=== PATIENT | male | born 1940 | race Asian ===

== ENCOUNTER 2023-09-24 19:46 | Inpatient (IN) | payer MEDICARE ==
[~2023-09-24] VITALS: Ht 157.5 cm; Wt 78.5 kg
[2023-09-24 21:10] LABS: BASOPHILS % 0.7 % (0.0-2.0); HEMATOCRIT. 26.4 % (42.0-52.0); HEMOGLOBIN. 8.5 g/dL (14.0-18.0); LYMPHOCYTES % 10.5 % (20.0-50.0); MEAN CORPUSCULAR HEMOGLOBIN 28.9 pg (28.0-32.0); MEAN CORPUSCULAR HGB CONC 32.3 g/dL (31.0-37.0); MEAN CORPUSCULAR VOLUME 89.5 fL (80.0-94.0); MEAN PLATELET VOLUME 9.5 fl (7.4-10.4); MONOCYTES % 5.5 % (2.0-8.0); NEUTROPHILS % 78.3 % (40.0-76.0); PLATELET 218 x1000/uL (130-400); RED BLOOD CELL COUNT 2.95 mill/uL (4.7-6.1); WHITE BLOOD COUNT 11.6 x1000/uL (4.5-11.0)
[2023-09-24 21:15] LABS: CHLORIDE 100 mEq/L (98-107); POTASSIUM 4.7 mEq/L (3.5-5.1); SODIUM 139 mEq/L (136-145)
[2023-09-24 21:16] LABS: CALCIUM 9.1 mg/dL (8.7-10.4); CARBON DIOXIDE 28 mEq/L (21-32)
[2023-09-24 21:21] LABS: CREATININE 4.2 mg/dL (0.6-1.3); GLUCOSE 213 mg/dL (70-105); UREA NITROGEN BLOOD 50 mg/dL (9-23)
[2023-09-24 21:23] LABS: ALANINE AMINOTRANSFERASE 26 IU/L (10-49); ALBUMIN 3.7 g/dL (3.2-4.8); ASPARTATE AMINOTRANSFERASE 33 IU/L (<34); BILIRUBIN TOTAL 0.4 mg/dL (0.1-1.0); PROTEIN TOTAL 6.8 g/dL (6.0-8.3)
[2023-09-24 21:37] LABS: TROPONIN I HIGH SENSITIVITY 616 ng/L (3.0-53)
[2023-09-24] MEDS: IPRATROPIUM BROMIDE (0.02%) 0.5MG/2.5ML NEB ONE (22:01)
[2023-09-24] MEDS: ALBUTEROL (0.083%) 2.5MG/3ML NEB ONE (22:02)
[2023-09-24] MEDS: ALBUTEROL (0.083%) 2.5MG/3ML NEB HHN STA (22:05)
[2023-09-24] MEDS: IPRATROPIUM BROMIDE (0.02%) 0.5MG/2.5ML NEB HHN STA (22:05)
[2023-09-24 22:06] VITALS: PULSE 91; RESP 12; O2SAT 96
[2023-09-24] MEDS ORDERED: DOCUSATE SODIUM 100MG CAPSULE PO PRN (22:30)
[2023-09-24] MEDS ORDERED: ACETAMINOPHEN 650MG/20.3ML UDC GT PRN (22:30)
[2023-09-24] MEDS ORDERED: ONDANSETRON HCL 4MG/2ML INJ IV PRN (22:30)
[2023-09-24] MEDS ORDERED: IPRATROPIUM/ALBUTEROL 0.5-3(2.5)MG/3ML NEB HHN PRN (22:30)
[2023-09-24] MEDS ORDERED: GUAIFENESIN 200MG/10ML SUGAR FREE UDC PO PRN (22:30)
[2023-09-24] MEDS: METHYLPREDNISOLONE SOD SUCC 40MG/ML (ACT-O-VIAL) IV SCH (22:30)
[2023-09-24] MEDS ORDERED: DEXTROSE 50% WATER 50ML SYRINGE IV PRN (22:30)
[2023-09-24] MEDS ORDERED: AZITHROMYCIN 500MG/250ML 250 ML IV STA (22:49)
[2023-09-24 23:26] LABS: PROTHROMBIN TIME 11.1 sec (9.6-11.0)
[2023-09-24 23:26] LABS: BG BASE EXCESS 2.7 mmol/L (-2.0-2.0); BG CARBOXYHEMOGLOBIN 0.4 % (0.5-1.5); BG DEOXYHEMOGLOBIN 6.8 % (0.0-5.0); BG HCO3 ACT 27.2 mmol/L (22.0-26.0); BG METHEMOGLOBIN 0.3 % (0.0-1.5); BG OXYGEN SATURATION 93.2 % (92.0-98.5); BG OXYHEMOGLOBIN 92.5 % (94.0-97.0); BG PCO2 41.3 mmHg (35.0-45.0); BG PH 7.436 (7.350-7.450); BG PO2 70.7 mmHg (75.0-100.0); BG SAMPLE SITE RIGHT RADIAL; BG TOTAL HEMOGLOBIN 8.8 g/dL (12.0-18.0); BG VENT MODE NASAL CANNULA
[2023-09-24] MEDS ORDERED: CEFTRIAXONE 1GM/50ML 50 ML IV NR (23:45)
[2023-09-24] MEDS ORDERED: DOXYCYCLINE 100MG/100ML 100 ML IV SCH (23:45)
[2023-09-24 23:51] LABS: TROPONIN I HIGH SENSITIVITY 620 ng/L (3.0-53)
[2023-09-25] VITALS (9 sets, daily range): BP systolic 104–172; BP diastolic 86–104; PULSE 87–92; RESP 17–23; TEMP 97.4–97.6; O2SAT 97–100
[2023-09-25] MEDS: ASPIRIN 325MG TABLET PO ONE (00:12)
[2023-09-25] MEDS: ACETAMINOPHEN 325MG TABLET PO PRN (00:13)
[2023-09-25 00:30] LABS: FERRITIN 391 ng/mL (22-322); FOLIC ACID (FOLATE) SERUM 10.88 ng/mL (>5.38)
[2023-09-25 00:31] LABS: VITAMIN B12 SERUM 328 pg/mL (211-911)
[2023-09-25 00:36] LABS: LACTIC ACID 2.1 mmol/L (0.4-2.0)
[2023-09-25] MEDS: ASPIRIN 325MG TABLET PO NR (01:02)
[2023-09-25] MEDS: FUROSEMIDE 40MG/4ML VIAL IVP NR (01:16)
[2023-09-25 01:18] LABS: IRON 23 ug/dL (65-175)
[2023-09-25 01:21] LABS: TOTAL IRON BINDING CAPACITY 160 ug/dl (250-425)
[2023-09-25] MEDS: CEFTRIAXONE 1GM/50ML 50 ML IV ONE (01:36)
[2023-09-25] MEDS: METHYLPREDNISOLONE SOD SUCC 125MG/2ML (ACT-O-VIAL) IV STA (01:47)
[2023-09-25] MEDS: METHYLPREDNISOLONE SOD SUCC 125MG/2ML (ACT-O-VIAL) IV NR (01:53)
[2023-09-25] MEDS: CEFTRIAXONE 1GM/50ML 50 ML IV NR (01:54)
[2023-09-25] MEDS: AZITHROMYCIN 500MG/250ML 250 ML IV NR (03:14)
[2023-09-25] MEDS: IPRATROPIUM/ALBUTEROL 0.5-3(2.5)MG/3ML NEB HHN SCH (04:46)
[2023-09-25 06:17] LABS: HEMATOCRIT 24.4 % (42.0-52.0); MEAN CORPUSCULAR HEMOGLOBIN 29.4 pg (28.0-32.0); MEAN CORPUSCULAR HGB CONC 32.8 g/dL (31.0-37.0); MEAN CORPUSCULAR VOLUME 89.6 fL (80.0-94.0); PLATELET 308 x1000/uL (130-400); RED BLOOD CELL COUNT 2.72 mill/uL (4.7-6.1); WHITE BLOOD COUNT 11.4 x1000/uL (4.5-11.0)
[2023-09-25 06:28] LABS: CHLORIDE 100 mEq/L (98-107); POTASSIUM 4.9 mEq/L (3.5-5.1); SODIUM 138 mEq/L (136-145)
[2023-09-25 06:29] LABS: CALCIUM 8.9 mg/dL (8.7-10.4); CARBON DIOXIDE 30 mEq/L (21-32)
[2023-09-25 06:34] LABS: CREATINE KINASE MB FRACTION 3.3 ng/mL (0.5-3.6); CREATININE 4.5 mg/dL (0.6-1.3); GLUCOSE 136 mg/dL (70-105); UREA NITROGEN BLOOD 53 mg/dL (9-23)
[2023-09-25 06:36] LABS: ALANINE AMINOTRANSFERASE 24 IU/L (10-49); ALBUMIN 3.7 g/dL (3.2-4.8); ASPARTATE AMINOTRANSFERASE 25 IU/L (<34); BILIRUBIN TOTAL 0.5 mg/dL (0.1-1.0); PHOSPHORUS 4.3 mg/dL (2.5-4.9); PROTEIN TOTAL 6.5 g/dL (6.0-8.3)
[2023-09-25] MEDS: INSULIN LISPRO 100 UNITS/ML SUBCUT SCH (08:20)
[2023-09-25] MEDS: PIPERACILLIN/TAZO 3.375G/50ML 50 ML IV SCH (09:06)
[2023-09-25] MEDS: ASPIRIN 81MG EC TABLET PO SCH (09:07)
[2023-09-25] MEDS: BLOOD SUGAR DIAGNOSTIC STRIP TEST SCH (09:11)
[2023-09-25 10:17] LABS: LACTIC ACID 2.8 mmol/L (0.4-2.0)
[2023-09-25 10:20] LABS: THYROID STIMULATING HORMONE 1.1 uIU/mL (0.55-4.78)
[2023-09-25 16:45] LABS: CREATINE KINASE MB FRACTION 6.4 ng/mL (0.5-3.6)
[2023-09-25] MEDS ORDERED: NIFE-32 PO (17:44)
[2023-09-25] MEDS ORDERED: CARV25TA47 PO (17:44)
[2023-09-25] MEDS: NIFEDIPINE XL 60MG TAB PO SCH (18:10)
[2023-09-25] MEDS ORDERED: CEFTRIAXONE 1GM/50ML 50 ML IV SCH (21:00)
[2023-09-25] MEDS: EPOETIN ALFA-EPBX 4,000 UNIT/ML VIAL SUBCUT SCH (21:53)
[2023-09-25 22:15] LABS: HEPATITIS B SURFACE ANTIGEN NEGATIVE (Negative)
[2023-09-25 22:36] LABS: HEPATITIS A AB IGM NEGATIVE (Negative); HEPATITIS B CORE AB IGM NEGATIVE (Negative)
[2023-09-25 22:37] LABS: HEPATITIS C AB NON REACTIVE (Neg) (Negative)
[2023-09-26] VITALS (22 sets, daily range): BP systolic 98–141; BP diastolic 50–110; PULSE 73–91; RESP 14–24; TEMP 97.2–98.1; O2SAT 96–98
[2023-09-26 02:22] LABS: TROPONIN I HIGH SENSITIVITY 1428 ng/L (3.0-53)
[2023-09-26 05:29] LABS: CARBON DIOXIDE 25 mEq/L (21-32); CHLORIDE 99 mEq/L (98-107); HEMATOCRIT. 25.5 % (42.0-52.0); HEMOGLOBIN. 8.4 g/dL (14.0-18.0); MEAN CORPUSCULAR HEMOGLOBIN 29.9 pg (28.0-32.0); MEAN CORPUSCULAR HGB CONC 33.1 g/dL (31.0-37.0); MEAN CORPUSCULAR VOLUME 90.6 fL (80.0-94.0); MEAN PLATELET VOLUME 9.3 fl (7.4-10.4); PLATELET 303 x1000/uL (130-400); POTASSIUM 4.9 mEq/L (3.5-5.1); RED BLOOD CELL COUNT 2.81 mill/uL (4.7-6.1); RED CELL DISTRIBUTION WIDTH 15.7 % (11.6-14.6); SODIUM 138 mEq/L (136-145); WHITE BLOOD COUNT 10.8 x1000/uL (4.5-11.0)
[2023-09-26 05:30] LABS: CALCIUM 8.9 mg/dL (8.7-10.4)
[2023-09-26 05:33] LABS: UREA NITROGEN BLOOD 74 mg/dL (9-23)
[2023-09-26 05:35] LABS: ALANINE AMINOTRANSFERASE 26 IU/L (10-49); GLUCOSE 186 mg/dL (70-105)
[2023-09-26 05:36] LABS: ALBUMIN 3.8 g/dL (3.2-4.8); ASPARTATE AMINOTRANSFERASE 40 IU/L (<34)
[2023-09-26 05:37] LABS: BILIRUBIN DIRECT 0.2 mg/dL (<=3.0); BILIRUBIN TOTAL 0.4 mg/dL (0.1-1.0); PHOSPHORUS 6.5 mg/dL (2.5-4.9); PROTEIN TOTAL 6.8 g/dL (6.0-8.3)
[2023-09-26 05:39] LABS: TROPONIN I HIGH SENSITIVITY 2269 ng/L (3.0-53)
[2023-09-26 05:40] LABS: CREATININE 5.3 mg/dL (0.6-1.3)
[2023-09-26 06:01] LABS: DIFFERENTIAL COMMENT 1
[2023-09-26 13:28] LABS: TROPONIN I HIGH SENSITIVITY 2420 ng/L (3.0-53)
[2023-09-26 16:32] LABS: LACTATE DEHYDROGENASE 419 IU/L (120-246); PLATELET ESTIMATE NORMAL
[2023-09-26 18:54] LABS: TROPONIN I HIGH SENSITIVITY 2457 ng/L (3.0-53)
[2023-09-26] MEDS: ATORVASTATIN CALCIUM 20MG TABLET PO SCH (22:01)
[2023-09-27] VITALS (20 sets, daily range): BP systolic 79–164; BP diastolic 60–125; PULSE 76–96; RESP 13–24; TEMP 97.1–98.2; O2SAT 96–97
[2023-09-27 05:56] LABS: CARBON DIOXIDE 25 mEq/L (21-32); CHLORIDE 102 mEq/L (98-107); SODIUM 138 mEq/L (136-145)
[2023-09-27 05:57] LABS: CALCIUM 8.2 mg/dL (8.7-10.4)
[2023-09-27 06:02] LABS: CREATININE 3.9 mg/dL (0.6-1.3); GLUCOSE 151 mg/dL (70-105); UREA NITROGEN BLOOD 48 mg/dL (9-23)
[2023-09-27 06:03] LABS: HEMATOCRIT 24.3 % (42.0-52.0); HEMOGLOBIN 8.1 g/dL (14.0-18.0); LACTATE DEHYDROGENASE 281 IU/L (120-246); MEAN CORPUSCULAR HEMOGLOBIN 29.5 pg (28.0-32.0); MEAN CORPUSCULAR HGB CONC 33.1 g/dL (31.0-37.0); MEAN CORPUSCULAR VOLUME 89.2 fL (80.0-94.0); PLATELET 286 x1000/uL (130-400); RED BLOOD CELL COUNT 2.73 mill/uL (4.7-6.1); RED CELL DISTRIBUTION WIDTH 15.7 % (11.6-14.6); WHITE BLOOD COUNT 10.8 x1000/uL (4.5-11.0)
[2023-09-27 06:04] LABS: PHOSPHORUS 5.6 mg/dL (2.5-4.9)
[2023-09-27] MEDS ORDERED: SODIUM BICARBONATE 4% 2.4MEQ/5ML VIAL IV ONE (09:30)
[2023-09-27] MEDS: SEVELAMER CARBONATE 800 MG TABLET PO SCH (13:51)
[2023-09-27 14:25] LABS: BODY FLUID MONOCYTES 8 %
[2023-09-27 14:26] LABS: BODY FLUID WBC 320 /cu mm (0-200)
[2023-09-27 14:27] LABS: BODY FLUID RBC 1780 /cu mm (0-2000)
[2023-09-27 15:19] LABS: TROPONIN I HIGH SENSITIVITY 1240 ng/L (3.0-53)
[2023-09-27 18:28] LABS: TROPONIN I HIGH SENSITIVITY 1236 ng/L (3.0-53)
[2023-09-27] MEDS: CARVEDILOL 3.125 MG TABLET PO SCH (21:45)
[2023-09-28] VITALS (22 sets, daily range): BP systolic 69–188; BP diastolic 49–134; PULSE 84–97; RESP 8–23; TEMP 96.9–98.4; O2SAT 96–98
[2023-09-28 04:56] LABS: HEMATOCRIT 24.8 % (42.0-52.0); HEMOGLOBIN 8.2 g/dL (14.0-18.0); MEAN CORPUSCULAR HEMOGLOBIN 30.6 pg (28.0-32.0); MEAN CORPUSCULAR HGB CONC 33.2 g/dL (31.0-37.0); PLATELET 298 x1000/uL (130-400); RED BLOOD CELL COUNT 2.69 mill/uL (4.7-6.1); RED CELL DISTRIBUTION WIDTH 15.8 % (11.6-14.6); WHITE BLOOD COUNT 9.5 x1000/uL (4.5-11.0)
[2023-09-28 05:07] LABS: TROPONIN I HIGH SENSITIVITY 1020 ng/L (3.0-53)
[2023-09-28] MEDS ORDERED: IODIXANOL 320MG/ML 100 ML BOTTLE IV ONE ×2 (07:48→10:50)
[2023-09-28] MEDS ORDERED: DIPHENHYDRAMINE 50MG/ML VIAL ONE (07:48)
[2023-09-28] MEDS ORDERED: VERAPAMIL HCL 2.5 MG/1 ML 2ML VIAL IV ONE (07:48)
[2023-09-28] MEDS ORDERED: HEPARIN 1000 UNITS/ML 10ML ONE (07:48)
[2023-09-28] MEDS ORDERED: LIDOCAINE HCL 1% 20ML VIAL ONE (07:48)
[2023-09-28 08:18] LABS: CALCIUM 7.6 mg/dL (8.7-10.4); POTASSIUM 4.4 mEq/L (3.5-5.1)
[2023-09-28] MEDS ORDERED: MIDAZOLAM HCL 2 MG/2 ML VIAL ONE (09:23)
[2023-09-28] MEDS ORDERED: FENTANYL CITRATE/PF 50MCG/ML 2ML VIAL ONE (09:23)
[2023-09-28 09:39] LABS: PROTEIN BODY FLUID < 2.0 gm/dL
[2023-09-28] MEDS ORDERED: HYDRALAZINE 20MG/ML VIAL ONE (11:00)
[2023-09-28] MEDS ORDERED: ATROPINE SULFATE 1MG/10ML SYR IV PRN (11:45)
[2023-09-28] MEDS ORDERED: ACETAMINOPHEN 325MG TABLET PO PRN (11:45)
[2023-09-28] MEDS: LORAZEPAM 2MG/ML INJ IV PRN (12:13)
[2023-09-28] MEDS: METHYLPREDNISOLONE SOD SUCC 40MG/ML (ACT-O-VIAL) IV SCH (12:13)
[2023-09-28] MEDS: MORPHINE SULFATE 2 MG/ML INJ (NOT FOR IM USE) IV PRN (13:14)
[2023-09-28] MEDS ORDERED: NALOXONE HCL 0.4MG/ML VIAL IV PRN (13:15)
[2023-09-28] MEDS: HYDRALAZINE 20MG/ML VIAL IV NR (18:38)
[2023-09-28] MEDS: CLONIDINE 0.1MG TABLET PO PRN (19:05)
[2023-09-29] VITALS (18 sets, daily range): BP systolic 116–141; BP diastolic 50–72; PULSE 73–103; RESP 14–23; TEMP 97–98.8; O2SAT 97–99
[2023-09-29 08:00] LABS: BASOPHILS % 0.1 % (0.0-2.0); HEMATOCRIT. 25.2 % (42.0-52.0); HEMOGLOBIN. 8.2 g/dL (14.0-18.0); LYMPHOCYTES % 5.8 % (20.0-50.0); MEAN CORPUSCULAR HEMOGLOBIN 28.6 pg (28.0-32.0); MEAN CORPUSCULAR HGB CONC 32.5 g/dL (31.0-37.0); MEAN PLATELET VOLUME 9.3 fl (7.4-10.4); MONOCYTES % 6.1 % (2.0-8.0); PLATELET 273 x1000/uL (130-400); RED BLOOD CELL COUNT 2.86 mill/uL (4.7-6.1); RED CELL DISTRIBUTION WIDTH 15.9 % (11.6-14.6); WHITE BLOOD COUNT 9.4 x1000/uL (4.5-11.0)
[2023-09-29 08:07] LABS: CARBON DIOXIDE 25 mEq/L (21-32); CHLORIDE 102 mEq/L (98-107); POTASSIUM 4.7 mEq/L (3.5-5.1); SODIUM 136 mEq/L (136-145)
[2023-09-29 08:08] LABS: CALCIUM 8.2 mg/dL (8.7-10.4)
[2023-09-29 08:13] LABS: CREATININE 4.2 mg/dL (0.6-1.3); GLUCOSE 241 mg/dL (70-105); UREA NITROGEN BLOOD 50 mg/dL (9-23)
[2023-09-29 08:15] LABS: PHOSPHORUS 5.9 mg/dL (2.5-4.9)
[2023-09-29 08:34] LABS: DIFFERENTIAL COMMENT 1
[2023-09-29 08:36] LABS: MEAN CORPUSCULAR VOLUME 87.9 fL (80.0-94.0)
[2023-09-30] VITALS (13 sets, daily range): BP systolic 110–153; BP diastolic 59–92; PULSE 84–101; RESP 12–20; TEMP 97–98.7; O2SAT 96
[2023-09-30] MEDS: PREDNISONE 20MG TABLET PO SCH (08:20)
[2023-09-30] MEDS: ENOXAPARIN 30MG/0.3ML SYR SUBCUT SCH (21:52)
[2023-09-30] MEDS: ZOLPIDEM TARTRATE 5MG TABLET PO NR (22:22)
[2023-10-01] VITALS (19 sets, daily range): BP systolic 139–165; BP diastolic 66–98; PULSE 77–93; RESP 12–26; TEMP 97–99
[2023-10-01 06:47] LABS: BASOPHILS % 0.1 % (0.0-2.0); EOSINOPHILS % 0.7 % (0.0-5.0); HEMATOCRIT 23.3 % (42.0-52.0); HEMATOCRIT. 23.3 % (42.0-52.0); HEMOGLOBIN 7.5 g/dL (14.0-18.0); HEMOGLOBIN. 7.5 g/dL (14.0-18.0); MEAN CORPUSCULAR HEMOGLOBIN 29.5 pg (28.0-32.0); MEAN CORPUSCULAR HGB CONC 32.3 g/dL (31.0-37.0); MEAN CORPUSCULAR VOLUME 91.4 fL (80.0-94.0); MEAN PLATELET VOLUME 9.3 fl (7.4-10.4); MONOCYTES % 7.7 % (2.0-8.0); NEUTROPHILS % 81.5 % (40.0-76.0); PLATELET 300 x1000/uL (130-400); RED BLOOD CELL COUNT 2.55 mill/uL (4.7-6.1); RED CELL DISTRIBUTION WIDTH 15.8 % (11.6-14.6); WHITE BLOOD COUNT 12.4 x1000/uL (4.5-11.0)
[2023-10-01 06:56] LABS: CARBON DIOXIDE 20 mEq/L (21-32); CHLORIDE 97 mEq/L (98-107); POTASSIUM 5.5 mEq/L (3.5-5.1); SODIUM 131 mEq/L (136-145)
[2023-10-01 06:57] LABS: CALCIUM 7.6 mg/dL (8.7-10.4)
[2023-10-01 07:01] LABS: GLUCOSE 136 mg/dL (70-105)
[2023-10-01 07:02] LABS: UREA NITROGEN BLOOD 60 mg/dL (9-23)
[2023-10-01 07:04] LABS: PHOSPHORUS 5.9 mg/dL (2.5-4.9)
[2023-10-01 07:05] LABS: CREATININE 5.9 mg/dL (0.6-1.3)
[2023-10-01 19:52] LABS: POTASSIUM 4.5 mEq/L (3.5-5.1)
[2023-10-01] MEDS: CARVEDILOL 6.25 MG TABLET PO SCH (20:26)
[2023-10-01] MEDS: MELATONIN 3MG TABLET PO SCH (20:27)
[2023-10-02] VITALS (9 sets, daily range): BP systolic 129–164; BP diastolic 61–78; PULSE 71–92; RESP 12–20; TEMP 97–98.7
[2023-10-03] VITALS (13 sets, daily range): BP systolic 92–179; BP diastolic 57–88; PULSE 73–95; RESP 18–23; TEMP 97.1–97.9
[2023-10-03 06:26] LABS: INR 1.1; PROTHROMBIN TIME 11.9 sec (9.6-11.0)
[2023-10-03 06:59] LABS: LACTATE DEHYDROGENASE 305 IU/L (120-246)
[2023-10-03 15:53] LABS: PROTEIN BODY FLUID < 2.0 gm/dL
[2023-10-03 19:59] LABS: BODY FLUID RBC 18 /cu mm (0-2000); BODY FLUID WBC 75 /cu mm (0-200)
[2023-10-03 20:00] LABS: BODY FLUID MONOCYTES 12 %
[2023-10-04] VITALS (8 sets, daily range): BP systolic 112–180; BP diastolic 34–86; PULSE 68–90; RESP 16–23; TEMP 97.1–98.4; O2SAT 99
[2023-10-04 17:08] LABS: PROTHROMBIN TIME 11.4 sec (9.6-11.0)
== END 2023-10-05 00:30 | DRG 280 ==
LOC: ER 19:46 → 5EST 21:56 → 7EST 10-02 12:39
PROVIDERS: ADMIT Preventive Medicine Clinical Informatics; ATTEND Preventive Medicine Clinical Informatics
PROC: 5A1D70Z Performance of Urinary Filtration, Intermittent, Less than 6 Hours Per Day (ICD-10-PCS; 2023-09-26)
PROC: 0W9B3ZZ Drainage of Left Pleural Cavity, Percutaneous Approach (ICD-10-PCS; 2023-09-27)
PROC: 4A023N7 Measurement of Cardiac Sampling and Pressure, Left Heart, Percutaneous Approach (ICD-10-PCS; principal; 2023-09-28)
PROC: B211YZZ Fluoroscopy of Multiple Coronary Arteries using Other Contrast (ICD-10-PCS; 2023-09-28)
PROC: B310YZZ Fluoroscopy of Thoracic Aorta using Other Contrast (ICD-10-PCS; 2023-09-28)
PROC: B41FYZZ Fluoroscopy of Right Lower Extremity Arteries using Other Contrast (ICD-10-PCS; 2023-09-28)
PROC: B410YZZ Fluoroscopy of Abdominal Aorta using Other Contrast (ICD-10-PCS; 2023-09-28)
PROC: 5A1D70Z Performance of Urinary Filtration, Intermittent, Less than 6 Hours Per Day (ICD-10-PCS; 2023-09-28)
PROC: 5A1D70Z Performance of Urinary Filtration, Intermittent, Less than 6 Hours Per Day (ICD-10-PCS; 2023-10-01)
PROC: 0W993ZZ Drainage of Right Pleural Cavity, Percutaneous Approach (ICD-10-PCS; 2023-10-03)
PROC: 5A1D70Z Performance of Urinary Filtration, Intermittent, Less than 6 Hours Per Day (ICD-10-PCS; 2023-10-03)
DX: I13.2 Hypertensive heart and chronic kidney disease with heart failure and with stage 5 chronic kidney disease, or end stage renal disease (principal); I50.23 Acute on chronic systolic (congestive) heart failure; I21.A1 Myocardial infarction type 2; J18.9 Pneumonia, unspecified organism; J96.01 Acute respiratory failure with hypoxia; N18.6 End stage renal disease; I25.810 Atherosclerosis of coronary artery bypass graft(s) without angina pectoris; J44.1 Chronic obstructive pulmonary disease with (acute) exacerbation; L03.115 Cellulitis of right lower limb; J44.0 Chronic obstructive pulmonary disease with (acute) lower respiratory infection; E87.1 Hypo-osmolality and hyponatremia; D50.8 Other iron deficiency anemias; E11.22 Type 2 diabetes mellitus with diabetic chronic kidney disease; D63.8 Anemia in other chronic diseases classified elsewhere; I25.10 Atherosclerotic heart disease of native coronary artery without angina pectoris; E78.5 Hyperlipidemia, unspecified; Z20.822 Contact with and (suspected) exposure to COVID-19; E83.39 Other disorders of phosphorus metabolism; E83.51 Hypocalcemia; I27.20 Pulmonary hypertension, unspecified; Y95 Nosocomial condition; E87.5 Hyperkalemia; R32 Unspecified urinary incontinence; Z79.4 Long term (current) use of insulin; Z79.82 Long term (current) use of aspirin; Z79.899 Other long term (current) drug therapy; Z99.2 Dependence on renal dialysis; Z99.81 Dependence on supplemental oxygen
CPT/HCPCS: 32555; 36415; 36600; 71045; 76604; 80048; 80053; 80076; 82375; 82553; 82607; 82728; 82746; 82805; 82962; 83036; 83540; 83550; 83605; 83615; 83735; 83880; 83986; 84100; 84132; 84145; 84295; 84443; 84484; 85025; 85027; 85379; 86705; 86709; 86850; 86900; 87340; 87426; 87804; 88108; 90935; 93005; 93306; 93459; 93970; 94640; 99291; C1760; C1769; C1887; C1893; J0360; J0456; J0696; J0885; J1200; J1644; J1650; J1815; J1940; J2060; J2250; J2270; J2543; J2919; J2920; J3010; J3490; J7512; Q9967

== ENCOUNTER 2023-11-24 00:04 | Inpatient (IN) | payer MEDICARE ==
[2023-11-24] VITALS (27 sets, daily range): BP systolic 96–133; BP diastolic 54–86; PULSE 70–87; RESP 11–25; TEMP 34.6388–37.05852; O2SAT 92–100
[~2023-11-24] VITALS: Ht 167.6 cm; Wt 70.3 kg
[~2023-11-24 00:04] MED LIST: CARV25TA47 PO; NIFE-32 PO
[2023-11-24 00:33] LABS: BASOPHILS % 0.2 % (0.0-2.0); DIFFERENTIAL COMMENT 0; EOSINOPHILS % 0.1 % (0.0-5.0); HEMATOCRIT. 41.9 % (42.0-52.0); LYMPHOCYTES % 12.7 % (20.0-50.0); MEAN CORPUSCULAR HEMOGLOBIN 29.2 pg (28.0-32.0); MEAN PLATELET VOLUME 9.3 fl (7.4-10.4); MONOCYTES % 3.6 % (2.0-8.0); NEUTROPHILS % 83.4 % (40.0-76.0); PLATELET 231 x1000/uL (130-400); RED BLOOD CELL COUNT 4.45 mill/uL (4.7-6.1); RED CELL DISTRIBUTION WIDTH 20.4 % (11.6-14.6); WHITE BLOOD COUNT 20.8 x1000/uL (4.5-11.0)
[2023-11-24 00:41] LABS: CALCIUM 8.2 mg/dL (8.7-10.4); CARBON DIOXIDE 26 mEq/L (21-32); CHLORIDE 98 mEq/L (98-107); POTASSIUM 4.2 mEq/L (3.5-5.1); SODIUM 136 mEq/L (136-145)
[2023-11-24 00:46] LABS: GLUCOSE 110 mg/dL (70-105); UREA NITROGEN BLOOD 44 mg/dL (9-23)
[2023-11-24 00:48] LABS: CREATININE 3.5 mg/dL (0.6-1.3); ETHANOL BLOOD < 10 mg/dL (<10)
[2023-11-24 00:53] LABS: TROPONIN I HIGH SENSITIVITY 3112 ng/L (3.0-53)
[2023-11-24 00:54] LABS: LACTIC ACID 3.5 mmol/L (0.4-2.0)
[2023-11-24 01:14] LABS: BG BASE EXCESS -0.4 mmol/L (-2.0-3.0); BG CARBOXYHEMOGLOBIN 0.4 % (0.5-1.5); BG DEOXYHEMOGLOBIN 4.4 % (0.0-5.0); BG FRACTION INSPIRED OXYGEN 100; BG HCO3 ACT 24.6 mmol/L (21.0-28.0); BG METHEMOGLOBIN 0.3 % (0.5-1.5); BG OXYGEN SATURATION 95.6 % (94.0-98.0); BG OXYHEMOGLOBIN 94.9 % (94.0-98.0); BG PH 7.386 (7.350-7.450); BG PO2 80.5 mmHg (83.0-108.0); BG SAMPLE SITE LEFT RADIAL; BG TOTAL HEMOGLOBIN 12.4 g/dL (13.5-17.5); BG VENT MODE MASK - NRB
[2023-11-24 01:19] LABS: PARTIAL THROMBOPLASTIN TIME 26.2 sec (23.4-31.0); PROTHROMBIN TIME 11.3 sec (9.6-11.0)
[2023-11-24] MEDS: VANCOMYCIN 1G PREMIX 200 ML IV NR (01:30)
[2023-11-24] MEDS: ASPIRIN 325MG EC TABLET PO NR (01:44)
[2023-11-24] MEDS: NITROGLYCERIN 0.1MG/HR PATCH TOP SCH (01:53)
[2023-11-24] MEDS: PIPERACILLIN/TAZO 3.375G/50ML 50 ML IV NR (02:00)
[2023-11-24] MEDS: FUROSEMIDE 40MG/4ML VIAL IVP NR (02:01)
[2023-11-24] MEDS: HYDRALAZINE 20MG/ML VIAL IV NR (02:02)
[2023-11-24] MEDS: HEPARIN 60 UNITS/KG BOLUS IV NR (02:02)
[2023-11-24] MEDS: HEPARIN 25,000 UNITS PREMIX 250 ML IV SCH (02:25)
[2023-11-24] MEDS ORDERED: HEPARIN BOLUS PRN aPTT 30-44 IV (08:00)
[2023-11-24] MEDS ORDERED: HEPARIN BOLUS PRN aPTT <30 IV (08:00)
[2023-11-24] MEDS ORDERED: CLONIDINE 0.1MG TABLET PO PRN (08:45)
[2023-11-24] MEDS ORDERED: ACETAMINOPHEN 325MG TABLET PO PRN (08:45)
[2023-11-24] MEDS ORDERED: IPRATROPIUM/ALBUTEROL 0.5-3(2.5)MG/3ML NEB HHN PRN (08:45)
[2023-11-24] MEDS: FUROSEMIDE 40MG/4ML VIAL IV SCH ×2 (09:00→17:04)
[2023-11-24 11:40] LABS: HEPATITIS B SURFACE ANTIGEN NEGATIVE (Negative)
[2023-11-24 11:42] LABS: HEPATITIS B SURFACE ANTIGEN NEGATIVE (Negative)
[2023-11-24] MEDS: CEFTRIAXONE 1GM/50ML 50 ML IV SCH (11:46)
[2023-11-24] MEDS: AZITHROMYCIN 500MG/250ML 250 ML IV SCH (11:46)
[2023-11-24 12:00] LABS: HEPATITIS A AB IGM NEGATIVE (Negative)
[2023-11-24 12:01] LABS: HEPATITIS B CORE AB IGM NEGATIVE (Negative)
[2023-11-24 12:02] LABS: HEPATITIS C AB NON REACTIVE (Neg) (Negative)
[2023-11-24 12:03] LABS: HEPATITIS C AB NON REACTIVE (Neg) (Negative)
[2023-11-25] VITALS (39 sets, daily range): BP systolic 70–147; BP diastolic 32–101; PULSE 76–99; RESP 12–60; TEMP 36.22512–37.503; O2SAT 91–99
[2023-11-25] MEDS: DIPHENHYDRAMINE 50MG/ML VIAL IV PRN (01:44)
[2023-11-25 06:51] LABS: BASOPHILS % 0.1 % (0.0-2.0); EOSINOPHILS % 0.5 % (0.0-5.0); HEMATOCRIT. 30.7 % (42.0-52.0); HEMOGLOBIN. 9.8 g/dL (14.0-18.0); MEAN CORPUSCULAR HEMOGLOBIN 29.1 pg (28.0-32.0); MEAN CORPUSCULAR VOLUME 90.7 fL (80.0-94.0); MEAN PLATELET VOLUME 9.7 fl (7.4-10.4); MONOCYTES % 6.8 % (2.0-8.0); NEUTROPHILS % 78.6 % (40.0-76.0); PLATELET 160 x1000/uL (130-400); RED BLOOD CELL COUNT 3.39 mill/uL (4.7-6.1); RED CELL DISTRIBUTION WIDTH 19.8 % (11.6-14.6); WHITE BLOOD COUNT 11.9 x1000/uL (4.5-11.0)
[2023-11-25 07:45] LABS: POTASSIUM 4.8 mEq/L (3.5-5.1)
[2023-11-25 07:46] LABS: CALCIUM 7.5 mg/dL (8.7-10.4)
[2023-11-25 07:53] LABS: CREATININE 4.7 mg/dL (0.6-1.3)
[2023-11-25] MEDS: SEVELAMER CARBONATE 800 MG TABLET PO SCH (09:26)
[2023-11-25] MEDS: FOLIC ACID/VITAMIN B COMP W-C TABLET PO SCH (09:26)
[2023-11-25] MEDS: CEFTRIAXONE 1GM/50ML 50 ML IV SCH (09:32)
[2023-11-25] MEDS: AZITHROMYCIN 500MG/250ML 250 ML IV SCH (11:14)
[2023-11-25] MEDS ORDERED: NALOXONE HCL 0.4MG/ML VIAL IV PRN (12:45)
[2023-11-25] MEDS: MORPHINE SULFATE 2 MG/ML INJ (NOT FOR IM USE) IV PRN (12:50)
[2023-11-25] MEDS: ALBUMIN HUMAN 12.5GM/50ML (25%) IV NR (17:09)
[2023-11-26] VITALS (13 sets, daily range): BP systolic 57–160; BP diastolic 40–105; PULSE 56–92; RESP 17–27; TEMP 36.114–36.78072; O2SAT 94–100
[2023-11-26 05:51] LABS: BASOPHILS % 0.2 % (0.0-2.0); EOSINOPHILS % 0.6 % (0.0-5.0); HEMATOCRIT. 31.3 % (42.0-52.0); HEMOGLOBIN. 10.1 g/dL (14.0-18.0); LYMPHOCYTES % 14.4 % (20.0-50.0); MEAN CORPUSCULAR HEMOGLOBIN 29.4 pg (28.0-32.0); MEAN CORPUSCULAR HGB CONC 32.3 g/dL (31.0-37.0); MEAN CORPUSCULAR VOLUME 91.2 fL (80.0-94.0); MEAN PLATELET VOLUME 9.4 fl (7.4-10.4); MONOCYTES % 7.5 % (2.0-8.0); NEUTROPHILS % 77.3 % (40.0-76.0); PLATELET 126 x1000/uL (130-400); RED BLOOD CELL COUNT 3.43 mill/uL (4.7-6.1); WHITE BLOOD COUNT 9.7 x1000/uL (4.5-11.0)
[2023-11-26 05:52] LABS: CALCIUM 7.9 mg/dL (8.7-10.4); POTASSIUM 4.5 mEq/L (3.5-5.1)
[2023-11-26 05:58] LABS: CREATININE 3.8 mg/dL (0.6-1.3)
[2023-11-26] MEDS ORDERED: AZIT500T8 MT (11:18)
[2023-11-26] MEDS ORDERED: SEVE800T8 PO (11:18)
[2023-11-26 12:10] LABS: BG BASE EXCESS -10.4 mmol/L (-2.0-3.0); BG CARBOXYHEMOGLOBIN 0.5 % (0.5-1.5); BG DEOXYHEMOGLOBIN 0.3 % (0.0-5.0); BG FRACTION INSPIRED OXYGEN 100; BG METHEMOGLOBIN 0.3 % (0.5-1.5); BG OXYGEN SATURATION 99.7 % (94.0-98.0); BG OXYHEMOGLOBIN 98.9 % (94.0-98.0); BG PCO2 22.8 mmHg (35.0-48.0); BG PH 7.374 (7.350-7.450); BG PO2 490.4 mmHg (83.0-108.0); BG SAMPLE SITE RIGHT RADIAL; BG TOTAL HEMOGLOBIN 11.5 g/dL (13.5-17.5); BG VENT MODE MASK - NRB
[2023-11-26] MEDS: INSULIN LISPRO 100 UNITS/ML SUBCUT SCH (12:17)
[2023-11-26] MEDS: MIDODRINE HCL 2.5MG TABLET PO SCH (12:45)
[2023-11-26] MEDS: BLOOD SUGAR DIAGNOSTIC STRIP TEST SCH (12:49)
[2023-11-26 16:52] LABS: CHLORIDE 101 mEq/L (98-107); POTASSIUM 4.9 mEq/L (3.5-5.1); SODIUM 136 mEq/L (136-145)
[2023-11-26 16:53] LABS: CALCIUM 7.6 mg/dL (8.7-10.4); CARBON DIOXIDE 22 mEq/L (21-32)
[2023-11-26 16:58] LABS: CREATININE 4.4 mg/dL (0.6-1.3); GLUCOSE 171 mg/dL (70-105); UREA NITROGEN BLOOD 52 mg/dL (9-23)
[2023-11-26 17:00] LABS: ALANINE AMINOTRANSFERASE 205 IU/L (10-49); ALBUMIN 3.5 g/dL (3.2-4.8); ASPARTATE AMINOTRANSFERASE 273 IU/L (<34); BILIRUBIN TOTAL 0.6 mg/dL (0.1-1.0)
[2023-11-26 17:01] LABS: PROTEIN TOTAL 5.8 g/dL (6.0-8.3)
[2023-11-26 17:10] LABS: TROPONIN I HIGH SENSITIVITY 2063 ng/L (3.0-53)
[2023-11-26] MEDS: ONDANSETRON HCL 4MG/2ML INJ IV PRN (21:27)
[2023-11-27] VITALS (45 sets, daily range): BP systolic 64–177; BP diastolic 38–115; PULSE 41–113; RESP 12–23; TEMP 36.114–36.83628; O2SAT 78–100
[2023-11-27 06:09] LABS: HEMATOCRIT. 34.2 % (42.0-52.0); HEMOGLOBIN. 10.6 g/dL (14.0-18.0); MEAN CORPUSCULAR HEMOGLOBIN 29.1 pg (28.0-32.0); MEAN CORPUSCULAR HGB CONC 31.1 g/dL (31.0-37.0); MEAN CORPUSCULAR VOLUME 93.6 fL (80.0-94.0); MEAN PLATELET VOLUME 10.3 fl (7.4-10.4); PLATELET 120 x1000/uL (130-400); RED BLOOD CELL COUNT 3.65 mill/uL (4.7-6.1); RED CELL DISTRIBUTION WIDTH 20.2 % (11.6-14.6); WHITE BLOOD COUNT 13.1 x1000/uL (4.5-11.0)
[2023-11-27 06:36] LABS: POTASSIUM 5.2 mEq/L (3.5-5.1)
[2023-11-27 06:37] LABS: CALCIUM 7.4 mg/dL (8.7-10.4)
[2023-11-27 06:52] LABS: DIFFERENTIAL COMMENT 1
[2023-11-27] MEDS: DEXTROSE 50% WATER 50ML SYRINGE IV PRN (08:23)
[2023-11-27] MEDS: ALBUMIN HUMAN 25GM/100ML (25%) IV NR (15:22)
[2023-11-27] MEDS: MIDODRINE HCL 5MG TABLET PO SCH (15:30)
[2023-11-27] MEDS: DOPAMINE 400MG/250ML PREMIX 250 ML IV PRN (18:34)
[2023-11-27 19:58] LABS: THYROID STIMULATING HORMONE 0.89 uIU/mL (0.55-4.78)
[2023-11-27] MEDS: NOREPINEPHRINE 8MG/250ML PMX 250 ML IV PRN (20:01)
[2023-11-27 20:35] LABS: LACTIC ACID 13.1 mmol/L (0.4-2.0)
[2023-11-27 22:54] LABS: PLATELET ESTIMATE NORMAL
[2023-11-28] VITALS (66 sets, daily range): BP systolic 51–176; BP diastolic 16–115; PULSE 39–102; RESP 0–33; TEMP 36.16956–36.55848; O2SAT 80–100
[2023-11-28 05:43] LABS: BASOPHILS % 0.1 % (0.0-2.0); EOSINOPHILS % 0.1 % (0.0-5.0); HEMATOCRIT. 29.3 % (42.0-52.0); HEMOGLOBIN. 9.1 g/dL (14.0-18.0); LYMPHOCYTES % 7.9 % (20.0-50.0); MEAN CORPUSCULAR VOLUME 93.7 fL (80.0-94.0); MEAN PLATELET VOLUME 10.5 fl (7.4-10.4); MONOCYTES % 7.9 % (2.0-8.0); PLATELET 104 x1000/uL (130-400); RED BLOOD CELL COUNT 3.13 mill/uL (4.7-6.1); RED CELL DISTRIBUTION WIDTH 19.9 % (11.6-14.6); WHITE BLOOD COUNT 17.3 x1000/uL (4.5-11.0)
[2023-11-28 05:51] LABS: CALCIUM 7.9 mg/dL (8.7-10.4)
[2023-11-28 05:57] LABS: CREATININE 4.7 mg/dL (0.6-1.3)
[2023-11-28 06:04] LABS: POTASSIUM 6.9 mEq/L (3.5-5.1)
[2023-11-28] MEDS: DEXTROSE 50% WATER 50ML SYRINGE IV NR (08:42)
[2023-11-28] MEDS: SODIUM BICARBONATE 8.4% 50MEQ/50ML SYR IV NR (08:42)
[2023-11-28] MEDS: INSULIN REGULAR (HUMULIN R) 1000UNITS/10ML VIAL IV NR (08:44)
[2023-11-28] MEDS ORDERED: IOHEXOL-350 100 ML BOTTLE ONE (09:01)
[2023-11-28] MEDS: CALCIUM GLUCONATE 1GM PREMIX 50 ML IV NR (09:58)
[2023-11-28] MEDS: PANTOPRAZOLE SODIUM 40 MG/VIAL IV SCH (12:50)
[2023-11-28] MEDS: ENOXAPARIN 80MG/0.8ML SYR SUBCUT SCH (12:50)
[2023-11-28] MEDS ORDERED: DEXT 10% WATER 1,000 ML IV PRN (14:30)
[2023-11-28] MEDS ORDERED: VASOPRESSIN 20 UNIT in SODIUM CHLORIDE 0.9% 99 ML IV PRN (15:00)
[2023-11-28] MEDS ORDERED: PHENYLEPHRINE 100 MG in DEXT 5% WATER 240 ML IV PRN (15:00)
[2023-11-28] MEDS ORDERED: DEXTROSE 50% WATER 50ML SYRINGE IV ONE (15:30)
== END 2023-11-28 15:54 | DRG 871 ==
LOC: ER 00:04 → 5EST 01:39 → EDBEDREQSVC 01:47 → EDBEDREQ 01:47 → CVICU 11-27 16:45
PROVIDERS: ADMIT Internal Medicine; ATTEND Internal Medicine
PROC: 5A09357 Assistance with Respiratory Ventilation, Less than 24 Consecutive Hours, Continuous Positive Airway Pressure (ICD-10-PCS; 2023-11-24)
PROC: 5A1D70Z Performance of Urinary Filtration, Intermittent, Less than 6 Hours Per Day (ICD-10-PCS; 2023-11-24)
PROC: 5A1D70Z Performance of Urinary Filtration, Intermittent, Less than 6 Hours Per Day (ICD-10-PCS; 2023-11-25)
PROC: 5A1D70Z Performance of Urinary Filtration, Intermittent, Less than 6 Hours Per Day (ICD-10-PCS; 2023-11-26)
PROC: 5A1935Z Respiratory Ventilation, Less than 24 Consecutive Hours (ICD-10-PCS; principal; 2023-11-28)
PROC: 0BH17EZ Insertion of Endotracheal Airway into Trachea, Via Natural or Artificial Opening (ICD-10-PCS; 2023-11-28)
PROC: 5A1D70Z Performance of Urinary Filtration, Intermittent, Less than 6 Hours Per Day (ICD-10-PCS; 2023-11-28)
DX: A41.9 Sepsis, unspecified organism (principal); I21.4 Non-ST elevation (NSTEMI) myocardial infarction; I50.23 Acute on chronic systolic (congestive) heart failure; N18.6 End stage renal disease; J96.01 Acute respiratory failure with hypoxia; J18.9 Pneumonia, unspecified organism; I13.2 Hypertensive heart and chronic kidney disease with heart failure and with stage 5 chronic kidney disease, or end stage renal disease; J44.0 Chronic obstructive pulmonary disease with (acute) lower respiratory infection; J98.11 Atelectasis; Z20.822 Contact with and (suspected) exposure to COVID-19; E11.22 Type 2 diabetes mellitus with diabetic chronic kidney disease; D64.9 Anemia, unspecified; I25.10 Atherosclerotic heart disease of native coronary artery without angina pectoris; Z66 Do not resuscitate; Z95.1 Presence of aortocoronary bypass graft; Z99.2 Dependence on renal dialysis; E87.5 Hyperkalemia; Z88.1 Allergy status to other antibiotic agents; Z91.148 Patient's other noncompliance with medication regimen for other reason
CPT/HCPCS: 36415; 36600; 71045; 71275; 80048; 80053; 80320; 82375; 82805; 82962; 83036; 83605; 83880; 84145; 84443; 84484; 85025; 86705; 86709; 87340; 87426; 90935; 93005; 93306; 93970; 94003; 94640; 94660; 99291; A6261; J0360; J0456; J0610; J0696; J1200; J1265; J1644; J1650; J1815; J1940; J2270; J2405; J2470; J2543; J3370; J3490; J7050; P9047; Q9967; G0480